=== PATIENT | male | born 1980 ===

== ENCOUNTER 2016-12-08 09:45 | Emergency (ER) | payer BC ==
[2016-12-08 10:00] VITALS: BP 120/81
--- NOTE | 2016-12-08 10:05 | UC ---
Headache HPI - HPI Summary HPI Summary: Headache began Thursday (3 days ago) night, seems to be getting worse, throbbing in the front of his head worse when he moves his head forward, pain in his neck with twisting his head, no nausea or vomiting, awoke from sleep last night with sever frontal headache, no fevers chills, - History Of Current Complaint Hx Obtained From: Patient Onset/Duration: Gradual Onset, Lasting Days - 3, Worse Since - tjhis morning Onset Of Symptoms: Gradual Initially Headache Was: Moderate Timing: Constant Character: Dull, Throbbing Location of Headache: Diffuse, Frontal, Occipital Aggravating Factor(s): Position Change Allevating Factor(s): Nothing Associated Signs And Symptoms: Positive: Neck Pain - muscular pain with movement of neck <Dennise Burks - Last Filed: 12/08/16 14:04> <Edith Haddad - Last Filed: 12/08/16 14:34> - History Of Current Complaint Chief Complaint: UCHeadache Stated Complaint: HEADACHE Time Seen by Provider: 12/08/16 09:49 - Allergies/Home Medications Allergies/Adverse Reactions: Allergies Allergy/AdvReac Type Severity Reaction Status Date / Time No Known Allergies Allergy Verified 12/08/16 10:00 Home Medications: Home Medications NK [No Home Medications Reported] 12/08/16 [History Confirmed 12/08/16] PMH/Surg Hx/FS Hx/Imm Hx Previously Healthy: Yes - Family History Known Family History: Positive: None - Social History Occupation: Employed Full-time Lives: With Family Alcohol Use: Occasionally Substance Use Type: None Smoking Status (MU): Never Smoked Tobacco <Dennise Burks - Last Filed: 12/08/16 14:04> Review of Systems Constitutional: Negative Skin: Negative Eyes: Negative ENT: Negative Respiratory: Negative Cardiovascular: Negative Gastrointestinal: Negative Genitourinary: Negative Motor: Negative Neurovascular: Negative Musculoskeletal: Negative Neurological: Headache Psychological: Negative Is Patient Immunocompromised?: No All Other Systems Reviewed And Are Negative: Yes <Dennise Burks - Last Filed: 12/08/16 14:04> Physical Exam Triage Information Reviewed: Yes Appearance: Well-Appearing, Well-Nourished, Pain Distress - mild Vital Signs Reviewed: Yes Eye Exam: Normal Eyes: Positive: Conjunctiva Clear, Other: - Perrla,Eomi, Fundascopic WNL ENT Exam: Normal ENT: Positive: Normal ENT inspection, Hearing grossly normal, Pharynx normal, TMs normal. Negative: Nasal congestion, Nasal drainage, Tonsillar swelling, Tonsillar exudate, Trismus, Muffled/hoarse voice Dental Exam: Normal Neck exam: Normal Neck: Positive: Supple, Nontender, No Lymphadenopathy Respiratory Exam: Normal Respiratory: Positive: Chest non-tender, Lungs clear, Normal breath sounds, No respiratory distress, No accessory muscle use Cardiovascular Exam: Normal Cardiovascular: Positive: RRR, No Murmur, Pulses Normal, Brisk Capillary Refill Musculoskeletal Exam: Normal Musculoskeletal: Positive: Strength Intact, ROM Intact, No Edema Neurological Exam: Normal Neurological: Positive: Alert, Muscle Tone Normal, Other: - RHomberg wnl, pronator drift WNL, Psychological Exam: Normal Psychological: Positive: Normal Response To Family Skin Exam: Normal <Dennise Burks - Last Filed: 12/08/16 14:04> Vital Signs: Initial Vital Signs Temp 97.8 F 12/08/16 09:57 Pulse 70 12/08/16 09:57 Resp 16 12/08/16 09:57 BP 120/81 12/08/16 09:57 Pulse Ox 100 12/08/16 09:57 <Edith Haddad - Last Filed: 12/08/16 14:34> Diagnostics - Radiology No standard instances Xray Interpretation: No Acute Changes Radiology Interpretation Completed By: Radiologist <Dennise Burks - Last Filed: 12/08/16 14:04> Re-Evaluation - Re-Evaluation First Eval Change: Improved <Dennise Burks - Last Filed: 12/08/16 14:04> Headache Course/Dx - Course Course Of Treatment: Rest Naproxen follow with pcp - Differential Dx/Diagnosis Provider Diagnoses: Headache <Dennise Burks - Last Filed: 12/08/16 14:04> Discharge <Dennise Burks - Last Filed: 12/08/16 14:04> <Edith Haddad - Last Filed: 12/08/16 14:34> - Discharge Plan Condition: Stable Disposition: HOME Patient Education Materials: Acute Headache (ED) Forms: *School Release Referrals: [facility] [Outside] - 4 Days Attestation Statement User Type: Provider - I was available for consult. This patient was seen by the KAYLA. The patient was not presented to, seen by, or examined by me. -Tasia <Edith Haddad - Last Filed: 12/08/16 14:34>
[2016-12-08] MEDS ORDERED: NS 0.9% 1000 ML* 1,000 ML IV ONE (10:14)
[2016-12-08] MEDS ORDERED: Ketorolac INJ* 30 MG/ML 1 ML VIAL IV PUSH ONE (10:14)
--- NOTE | 2016-12-08 10:32 | RAD ---
HISTORY: Headache COMPARISONS: None TECHNIQUE: Multiple contiguous axial CT scans were obtained of the head without intravenous contrast. FINDINGS: HEMORRHAGE/INFARCT: There is no hemorrhage or acute infarct. MASSES/SHIFT: There is no mass or shift. EXTRA-AXIAL SPACES: There are no extra-axial fluid collections. SULCI AND VENTRICLES: The sulci and ventricles are normal in size and position for the patient's stated age. CEREBRUM: There are no focal parenchymal abnormalities. BRAINSTEM: There are no focal parenchymal abnormalities. CEREBELLUM: There are no focal parenchymal abnormalities. VESSELS: The vessels are grossly normal. PARANASAL SINUSES: The paranasal sinuses are clear. ORBITS: The orbits are unremarkable. BONES AND SOFT TISSUE: No bone or soft tissue abnormalities are noted. OTHER: None IMPRESSION: NO ACUTE INTRACRANIAL PATHOLOGY.
== END 2016-12-08 11:26 | disposition home or self-care (01) ==
LOC: UCCORT 09:45
DX: R51 Headache (principal)
CPT/HCPCS: 70450; 96361; 96374; 99211; G0463; J1885